=== PATIENT | male | born 1955 | race Caucasian/White ===

== ENCOUNTER 2022-04-25 09:41 | Emergency (ER) | payer OTHER, SELFPAY ==
[2022-04-25] VITALS (7 sets, daily range): BP systolic 103–150; BP diastolic 63–83; PULSE 43–62; RESP 16; TEMP 36.9; O2SAT 100
--- NOTE | ~2022-04-25 | CT_ITS ---
EXAMINATION: CTA brain carotid DATE: 04/25/2022 11:53 INDICATION: Dizziness. Disorientation. TECHNIQUE: Computed tomographic angiography (CTA) of the head was performed without and with 100 mL O mnipaque 300 intravenous contrast. CTA of the neck was performed with intravenous contrast. Automated exposure control and iterative reconstruction technique were employed. The dose-length product was 1 942.59 mGy-cm. Maximum intensity projection and volume rendered 3D-reconstructions were created by nallely urena technologist on a separate workstation. COMPARISON: None. FINDINGS: HEAD CTA: There is no intracranial hemorrhage, acute infarction, or abnormal intracranial mass lesion . There is a 2.7 x 1.5 cm arachnoid cyst lateral to left cerebellar hemisphere. The ventricles are no rmal in size. There is mild mucosal thickening in the paranasal sinuses. The orbits are normal. The m astoid air cells are normal. Right vertebral artery is dominant. There is no significant stenosis of basilar artery or the posterior cerebral arteries. There is no significant stenosis of the intracrani al internal carotid arteries or anterior or middle cerebral arteries. Anterior communicating artery i s normal. There is no aneurysm. NECK CTA: Partially visualized is mild mediastinal lymphadenopathy. There is no significant stenosis of the vertebral arteries. There is plaque in the proximal internal carotid arteries. There is 0% zurdo nosis of the proximal right internal carotid artery relative to normal distal artery lumen diameter ( NASCET criteria). There is 20% stenosis of the proximal left internal carotid artery relative to norm al distal artery lumen diameter. There is severe cervical spondylosis. IMPRESSION: 1. Arachnoid cyst lateral to left cerebral hemisphere, likely not clinically significant. 2. No aneurysm or significant intracranial arterial stenosis. 3. 0% stenosis of the proximal right internal carotid artery relative to normal distal artery lumen d iameter (NASCET criteria). 4. 20% stenosis of the proximal left internal carotid artery relative to normal distal artery lumen d iameter. Reviewed, dictated and finalized at location A. IMPRESSION: 1. Arachnoid cyst lateral to left cerebral hemisphere, likely not clinically si gnificant. 2. No aneurysm or significant intracranial arterial stenosis. 3. 0% stenosis of the proximal right internal carotid artery relative to normal distal artery lumen diameter (NASCET criteria). 4. 20% stenosis of the proximal left internal carotid artery relative to normal distal artery lumen diameter.
--- NOTE | 2022-04-25 10:14 | ECG_ITS ---
Measurements Intervals Cascade Rate: 48 P: 4 AR: 200 QRS: -45 QRSD: 117 T: 0 QT: 387 QTc: 348 Interpretive Statements SINUS BRADYCARDIA LEFT ANTERIOR FASCICULAR BLOCK [QRS AXIS <= -45, QR IN I, RS IN II] ABNORMAL ECG NO PREVIOUS ECG AVAILABLE FOR COMPARISON Electronically Signed On 04-25-2022 16:47:26 CDT by Leander Tello M.D.
--- NOTE | 2022-04-25 10:28 | ED.GENADULT ---
HPI - General Adult General Chief complaint: Dizziness Stated complaint: disorientation that began around 0800 this morning Time Seen by Provider: 04/25/22 09:59 Source: patient Mode of arrival: ambulatory Limitations: no limitations History of Present Illness HPI narrative: Patient is a 66-year-old male who presents to the ED with report of disorientation. Patient reports he was at work this morning and was having difficulty focusing. Around 8 AM this morning, he was walking out to his truck when he suddenly became disoriented. He states he was walking and felt like his eyes were not in sync with his feet. Involving both eyes. He denied any focal weakness, confusion, difficulty walking, vision changes, dysarthria, slurred speech at that time. He does not report feeling dizzy or lightheaded at that time, but states he just felt like his eyes weren't able to focus or match up with what his body was doing. He went and sat in his car and reported the symptoms improved with sitting down. Symptoms worse with walking, turning head. He then drove to the ED. Patient does mention having previous episodes of a sort of dizziness in the last couple weeks, described as though he fell off and his eyes were dancing. Patient states he feels fine currently laying down in the ED bed, but does report lightheadedness with sitting upright. He continues to deny any focal weakness, confusion, dysarthria, dysphagia, headache, vision changes, chest pain, shortness of breath, fever, abdominal pain, nausea, vomiting. Related Data Home Medications Medication Instructions Recorded Confirmed atorvastatin 80 mg tablet 40 mg PO DAILY 04/25/22 04/25/22 etanercept 50 mg/mL (1 mL) 50 mg subcut WEEKLY 04/25/22 04/25/22 subcutaneous pen injector (Enbrel SureClick) folic acid 1 mg tablet 1 mg PO DAILY 04/25/22 04/25/22 meloxicam 7.5 mg tablet 7.5 mg PO DAILY 04/25/22 04/25/22 metformin 750 mg tablet,extended 750 tablet PO BID 04/25/22 04/25/22 release 24 hr methotrexate sodium 2.5 mg tablet 8 mg PO WEEKLY 04/25/22 04/25/22 metoprolol tartrate 25 mg tablet 25 mg PO DAILY 04/25/22 04/25/22 Allergies Allergy/AdvReac Type Severity Reaction Status Date / Time No Known Allergies Allergy Unverified 05/22/19 15:36 Review of Systems Review of Systems: CONSTITUTIONAL: Denies fever, chills, or sweats. EYES: Reports difficulty focusing. Denies visual changes. ENT: Denies rhinorrhea, congestion, sore throat, or otalgia. CARDIOVASCULAR: Denies chest pain. RESPIRATORY: Denies dyspnea. GASTROINTESTINAL: Denies abdominal pain, nausea, vomiting, or diarrhea. MUSCULOSKELETAL: Denies back pain, joint pain, or myalgia. NEUROLOGIC: Reports disorientation, lightheadedness. Denies confusion, difficulty walking, headache, numbness, tingling, dysarthria, dysphagia, confusion, slurred speech, or focal weakness. All systems reviewed & are unremarkable except as noted in HPI and below PMFSH Past Medical History Medical History (Updated 04/25/22 @ 16:34 by Eliza Villatoro PA-C) Diabetes HTN (hypertension) Hypercholesterolemia Psoriatic arthritis Surgical History Surgical History (Updated 04/25/22 @ 10:46 by Eliza Villatoro PA-C) History of fusion of cervical spine Social History Social History (Updated 04/25/22 @ 10:46 by Eliza Villatoro PA-C) Smoking status: Former smoker Exam Narrative: GENERAL: Well appearing, well-nourished, non-toxic, in no acute distress. HEAD: Normocephalic, atraumatic. EYES: PERRL/EOMI, conjunctivae clear bilaterally. Bilateral fatiguable nystagmus, worse when looking to the right. NOSE: Normal, no drainage. EARS: Bilateral cerumen impactions. NECK: Supple. No adenopathy, no masses. RESPIRATORY: Airway patent, respirations nonlabored. Clear to auscultation bilaterally, no rales, rhonchi, wheezing. CARDIOVASCULAR: Regular rate and rhythm without murmurs, rubs, or gallops. Peripheral pulses 2+ and equal bilaterally. ABDOMINAL: Soft,
[2022-04-25] MEDS: MECLIZINE HCL 25 MG TABLET PO (11:03)
[2022-04-25] MEDS: SODIUM CHLORIDE 0.9% IV 1,000 ML 999 ML IV CONT ×2 (11:04→14:42)
[2022-04-25 11:16] LABS: Basophils Percent Auto 0.7 % (0.2-1.2); Eosinophils Absolute Auto 0.1 K/mm3 (0-0.3); Eosinophils Percent Auto 2.4 % (0-4.4); Hematocrit 37.7 % (42.0-52.0); Hemoglobin 12.8 g/dL (14.0-18.0); Immature Granulocyte Absolute 0.01 K/mm3 (0.00-0.031); Immature Granulocyte Percent A 0.2 % (0-0.5); Lymphocytes Absolute Auto 0.85 K/mm3 (0.9-3.2); Lymphocytes Percent Auto 20.4 % (18.3-44.2); Mean Corpuscular Hemoglobin 33.8 pg (26-34); Mean Corpuscular Volume 99.5 fl (80-100); Mean Platelet Volume 10.6 fl (7.4-10.4); Monocytes Absolute Auto 0.5 K/mm3 (0.1-0.6); Monocytes Percent Auto 11.5 % (2.6-8.5); Neutrophils Absolute Auto 2.7 K/mm3 (1.3-6.7); Neutrophils Percent Auto 64.8 % (45.5-73.1); Platelet Count Result 199 k/mm3 (150-375); Red Blood Count 3.79 M/mm3 (4.6-6.20); Red Cell Distribution Width 13.4 % (11.5-14.5); White Blood Count 4.2 K/mm3 (4.5-10.0)
[2022-04-25 11:25] LABS: Alanine Aminotransferase 13 U/L (6-50); Albumin Level 3.6 g/dL (3.5-5.1); Alkaline Phosphatase 57 U/L (38-126); Anion Gap 6 mmol/L (8-16); Aspartate Amino Transferase 18 U/L (17-59); Bilirubin,Total 0.8 mg/dL (0.2-1.3); Blood Urea Nitrogen 22 mg/dL (9-20); Calcium 8.5 mg/dL (8.4-10.2); Carbon Dioxide 24 mmol/L (22-30); Chloride 105 mmol/L (98-107); Estimated CRCL calculation 96 ml/min; Estimated Glomerular Filt Rate > 60; Glucose 196 mg/dL (65-110); Potassium 3.8 mmol/L (3.4-5.0); Sodium 135 mmol/L (137-145)
[2022-04-25 11:30] LABS: INR 1.1; Prothrombin Time 13.6 Seconds (11.1-14.7)
[2022-04-25 11:31] LABS: Partial Thromboplastin Time 29.7 SECONDS (22.3-36.8)
[2022-04-25 11:37] LABS: Troponin I < 0.012 ng/mL (0.000-0.034)
[2022-04-25 12:09] LABS: Appearance Urine Clear (Clear); Bilirubin Urine Negative (Negative); Blood Urine Negative (Negative); Color Urine Yellow (Yellow); Glucose Urine UA Trace mg/dL (Negative); Ketones Urine Negative (Negative); Leukocyte Esterase Ur Negative LEU/UL (Negative); Nitrate Urine Negative (Negative); Protein Urine Negative (Negative); Urobilinogen Urine 0.2 mg/dL (<2.0); pH Urine 5.5 (5.0-9.0)
[2022-04-25 12:18] LABS: Mucus Urine Rare /lpf; RBC Urine 0-2 /hpf (0-2)
[2022-04-25 12:23] LABS: Add Urine Microscopic? YES
--- NOTE | 2022-04-25 14:41 | PC.NURSE ---
Ear irrigated by DENISA Kumar. Two large balls of wax removed from patient's ears.
== END 2022-04-25 17:01 | disposition home or self-care (01) ==
PROVIDERS: Physician Assistant; Emergency Provider Emergency Medicine; PCP Family Medicine
DX: R42 Dizziness and giddiness (principal); H61.23 Impacted cerumen, bilateral; E11.9 Type 2 diabetes mellitus without complications; I10 Essential (primary) hypertension; E78.00 Pure hypercholesterolemia, unspecified; L40.50 Arthropathic psoriasis, unspecified; Z98.1 Arthrodesis status; Z87.891 Personal history of nicotine dependence; Z79.84 Long term (current) use of oral hypoglycemic drugs
CPT/HCPCS: 36415; 69209; 70496; 70498; 80053; 81001; 84484; 85025; 85610; 85730; 93005; 96360; 96361; 99284; A9270; J7030; Q9967

== ENCOUNTER 2023-05-30 09:55 | Outpatient (CLI) | payer OTHER, SELFPAY ==
--- NOTE | ~2023-05-30 | XR_ITS ---
EXAM: XR shoulder RT min 2V DATE: 05/30/2023 10:15 HISTORY: polyarticular psoriatic arthritis, chronic right shoulder pn . COMPARISON: None available. FINDINGS: Normal mineralization. No fracture or dislocation. No lytic or blastic lesion. Severe AC j oint hypertrophy, with inferior osteophytosis. Moderate degenerative change at the glenohumeral joint . No erosion or periosteal change. Soft tissues within normal limits. IMPRESSION: Polyarticular osteoarthritis of the right shoulder. Reviewed, dictated and finalized at location K.
== END 2023-05-30 09:56 ==
PROVIDERS: PCP Family Medicine
DX: M19.011 Primary osteoarthritis, right shoulder (principal); L40.59 Other psoriatic arthropathy
CPT/HCPCS: 73030

== ENCOUNTER 2024-05-23 23:18 | Inpatient (IN) | payer MEDICARE, SELFPAY ==
--- NOTE | ~2024-05-23 | XR_ITS ---
EXAMINATION: XR abdomen gastric tube insert, XR abdomen gastric tube rechec DATE: 05/24/2024 03:56 INDICATION: Nasogastric tube placement and retrograde advancement TECHNIQUE: 1. A supine view of the abdomen and lower chest was obtained for evaluation of feeding tube placement . 2. After advancement of the nasogastric tube a second supine view of the abdomen and lower chest was obtained for evaluation of feeding tube placement. COMPARISON: None. FINDINGS: On the initial image the nasogastric tube tip is in the body the stomach with proximal side-port just above level of the gastroesophageal junction. This is advanced by a few centimeters on the subsequen t image with the distal tip in proximal side port now in the body of the stomach. No dilated loops of gas-filled bowel evident in the visualized abdomen. There are some excreted contrast in the bilatera l renal collecting system from an earlier contrast-enhanced CT . Calcified nodule at the right lower lung zone consistent with old granulomatous disease. Heart size is normal. IMPRESSION: 1. Nasogastric tube expected position with both distal tip and proximal side port in the body of the stomach on the final image. Reviewed, dictated and finalized at location A. IMPRESSION: 1. Nasogastric tube expected position with both distal tip and proximal side po rt in the body of the stomach on the final image.
--- NOTE | ~2024-05-23 | CT_ITS ---
EXAMINATION: CT abdomen pelvis w con DATE: 05/24/2024 01:43 INDICATION: Right lower quadrant abdominal pain. TECHNIQUE: Computed tomography (CT) of the abdomen and pelvis was performed with 100 mL Omnipaque-350 intravenous contrast. Automated exposure control and iterative reconstruction technique were employe d. The dose-length product was 708.76 mGy-cm. COMPARISON: None FINDINGS: Mild dependent atelectasis in bilateral lower lobes. A few calcified nodules in the right lower lobe along with calcified right hilar and mediastinal lymph nodes consistent with old granulomatous diseas e. Heart size is normal. Atherosclerotic coronary artery calcifications. No pericardial or pleural ef fusion. Liver, gallbladder, spleen, pancreas and bilateral adrenal glands are normal. There are bilat eral renal cysts measuring up to 1.6 cm in the right kidney. Bladder is normal. Bilateral small fat-c ontaining inguinal hernias. Colonic diverticulosis with a sigmoid predominance but without adjacent i nflammatory change to suggest diverticulitis. The appendix is not visualized. No pericecal inflammato ry change to suggest acute appendicitis. There are a few mildly dilated loops of fluid-filled small bowel extending from the right abdomen int o the pelvis with transition point just anterior to the left internal iliac artery. Immediately dista l to the obstruction is a saclike collection of multiple loops of fluid-filled but not dilated small bowel in the left pelvis with associated mesenteric edema and with hypoenhancement of the bowel wall. Near the first transition point is a second decompressed transition point to more distal relatively decompressed small bowel but with normal mural enhancement. The transition point while relatively izabella se proximity do not appear to twist around each other to suggest a volvulus would favor an internal h ernia. No pneumatosis, abscess or free intraperitoneal gas. Minimal likely reactive ascites in the No pathologically enlarged abdominal or pelvic lymphadenopathy. Moderate lumbar spondylosis. Mild thora cic spondylosis with bridging osteophytes at multiple levels consistent with diffuse idiopathic skele darby hyperostosis (DISH). IMPRESSION: 1. Early versus partial small bowel obstruction with mesenteric edema and hyperenhancement of a sacli ke collection of small bowel loops distal to the transition point. Would favor an internal hernia ove r closed loop obstruction but nonetheless with concern for ischemia. Reviewed, dictated and finalized at location A. IMPRESSION: 1. Early versus partial small bowel obstruction with mesenteric edema and hyper enhancement of a saclike collection of small bowel loops distal to the transiti on point. Would favor an internal hernia over closed loop obstruction but nonet heless with concern for ischemia.
[2024-05-23 23:24] VITALS: BP 135/64; PULSE 46; RESP 16; TEMP 36.6; O2SAT 100
[2024-05-23 23:42] LABS: Basophils Percent Auto 0.4 % (0.2-1.2); Eosinophils Percent Auto 0.4 % (0-4.4); Hematocrit 42.4 % (42.0-52.0); Hemoglobin 14.3 g/dL (14.0-18.0); Immature Granulocyte Absolute 0.01 K/mm3 (0.00-0.031); Immature Granulocyte Percent A 0.2 % (0-0.5); Lymphocytes Absolute Auto 0.75 K/mm3 (0.9-3.2); Mean Corpuscular HGB Conc 33.7 g/dl (32-36); Mean Corpuscular Hemoglobin 33.5 pg (26-34); Mean Corpuscular Volume 99.3 fl (80-100); Mean Platelet Volume 10.5 fl (7.4-10.4); Monocytes Absolute Auto 0.4 K/mm3 (0.1-0.6); Monocytes Percent Auto 7.8 % (2.6-8.5); Neutrophils Absolute Auto 3.8 K/mm3 (1.3-6.7); Neutrophils Percent Auto 76.2 % (45.5-73.1); Platelet Count Result 232 k/mm3 (150-375); Red Blood Count 4.27 M/mm3 (4.6-6.20); Red Cell Distribution Width 14.2 % (11.5-14.5)
[2024-05-23 23:54] LABS: Alanine Aminotransferase 16 U/L (6-50); Albumin Level 4.1 g/dL (3.5-5.1); Alkaline Phosphatase 69 U/L (38-126); Anion Gap 9 mmol/L (4-12); Aspartate Amino Transferase 22 U/L (17-59); Bilirubin,Total 0.6 mg/dL (0.2-1.3); Blood Urea Nitrogen 23 mg/dL (9-20); Calcium 9.2 mg/dL (8.4-10.2); Carbon Dioxide 28 mmol/L (22-30); Chloride 99 mmol/L (98-107); Estimated CRCL calculation 75 ml/min; Estimated Glomerular Filt Rate > 60; Glucose 192 mg/dL (65-110); Lipase 216 U/L (23-300); Potassium 4.1 mmol/L (3.4-5.0); Sodium 136 mmol/L (137-145)
[2024-05-23 23:56] VITALS: BP 138/55; PULSE 56; RESP 14; O2SAT 99
[2024-05-24] VITALS (21 sets, daily range): BP systolic 133–171; BP diastolic 56–91; PULSE 47–73; RESP 10–20; TEMP 36.3–37.1; O2SAT 94–100
[2024-05-24 00:10] LABS: Appearance Urine Clear (Clear); Bilirubin Urine Negative (Negative); Blood Urine Negative (Negative); Color Urine Yellow (Yellow); Glucose Urine UA 3+ mg/dL (Negative); Ketones Urine 1+ mg/dL (Negative); Leukocyte Esterase Ur Negative LEU/UL (Negative); Nitrate Urine Negative (Negative); Protein Urine Negative (Negative); Specific Grav Ur 1.036 (1.001-1.035)
[2024-05-24 00:14] LABS: Add Urine Microscopic? YES
[2024-05-24] MEDS: ONDANSETRON INJ 4 MG/2 ML VIAL IV PUSH ×4 (01:23→13:00)
[2024-05-24] MEDS: HYDROmorphone HCL INJ (*CRX) 1 MG/ML SYR 0.5 MG IV PUSH ×4 (01:23→18:48)
[2024-05-24] MEDS: SODIUM CHLORIDE 0.9% IV 2,000 ML 999 ML IV CONT (01:24)
[2024-05-24] MEDS: KETOROLAC 15 MG/ML VIAL (*BKC) IV PUSH (01:26)
--- NOTE | 2024-05-24 02:10 | ED.GENADULT ---
HPI - General Adult General Chief complaint: Abdominal Pain Stated complaint: stomach cramps Time Seen by Provider: 05/24/24 01:06 History of Present Illness HPI narrative: This is a 68-year-old male presenting ED with chief complaint of abdominal pain. Pain started 830 while he was watching TV. It is a crampy pain, it is nonradiating, in the middle and left lower quadrant that comes and goes. It is severe in intensity. He has never had pain like this in before. there are no exacerbating alleviating factors. He has nausea but no vomiting. Last bowel movement was earlier today. No history of small-bowel obstruction. No prior abdominal surgerys. No history of diverticulitis. No fevers. Related Data Home Medications Medication Instructions Recorded Confirmed folic acid 1 mg tablet 1 mg PO DAILY 04/25/22 01/07/24 methotrexate sodium 2.5 mg tablet 8 mg PO WEEKLY 04/25/22 01/07/24 metoprolol tartrate 25 mg tablet 25 mg PO DAILY 04/25/22 01/07/24 Allergies Allergy/AdvReac Type Severity Reaction Status Date / Time No Known Allergies Allergy Verified 05/23/24 23:18 [facility] Past Medical History Medical History Diabetes HTN (hypertension) Hypercholesterolemia Male erectile dysfunction, unspecified Other truck terminal manager (current) drug therapy Psoriatic arthritis 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 Mother No problems noted. Social History Social History Smoking status: Former smoker Alcohol intake: never Substance use: never Substance use type: does not use Lack of Transportation: No Lack of Food: Never True Current Housing: I Have Housing Concerned About Future Housing: No Difficulty Paying Gas/Electric Bills: No Difficulty Paying for Meds: No Currently Unemployed: YES Education: High School Diploma/GED Difficulty w/ Childcare or Family Care: No Living arrangements: with family Occupation/Education: occupation Gender identity (if verbalized by the patient): Male Sexual Orientation (if Verbalized by the Patient): Straight or Heterosexual Spiritual care concerns: No Exam Narrative: APPEARANCE: No apparent distress. Head: atraumatic. EYES: EOMI, NOSE: Atraumatic NECK: Trachea midline RESPIRATORY: No increased rate of breathing CARDIOVASCULAR: RRR, ABDOMINAL: Tenderness to palpation in the suprapubic area and left lower quadrant. Voluntary guarding. MUSCULOSKELETAl: No obvious deformities NEURO: Alert. Moving 4/4 extremities SKIN:: Warm, dry. Normal color PSYCHIATRIC: Normal affect Course Vital Signs Vital signs: Vital Signs Temperature 97.8 F 05/23/24 23:24 Pulse Rate 46 L 05/23/24 23:24 Respiratory Rate 16 05/23/24 23:24 Blood Pressure 135/64 05/23/24 23:24 Pulse Oximetry 100 05/23/24 23:24 Oxygen Delivery Room Air 05/23/24 23:24 Temperature 97.8 F 05/23/24 23:24 Pulse Rate 58 L 05/24/24 02:20 Respiratory Rate 14 05/24/24 02:20 Blood Pressure 144/67 H 05/24/24 02:20 Pulse Oximetry 100 05/24/24 02:20 Oxygen Delivery Room Air 05/23/24 23:24 Medical Decision Making MDM Narrative Medical decision making narrative: -Course: 68-year-old male presenting with lower abdominal pain. CT shows small bowel volvulus with small-bowel obstruction. Vital signs stable with no white count or lactic acid elevations. Patient given fluid resuscitation, pain control, antiemetics and antibiotics. Nasal tube inserted and placed to low inte
[2024-05-24 03:02] LABS: Lactic Acid Reflex 1.5 mmol/L (0.7-2.0)
[2024-05-24] MEDS: PIPERACILLN/TAZ 3.375GM/NS50ML 3.375 GM/50 ML BAG IVPB ×4 (03:29→20:12)
--- NOTE | 2024-05-24 05:18 | ADMGEN ---
This patient, Sabino Crockett, was admitted to Medical Room 347-. Patient/family oriented to hospital policies and general routines including ID bracelet, bed and alarms, visiting hours, pain management, procedures, bathroom and other care routines, personal items, smoking policy, room service/diet, and visiting hours. Information on how to activate the Rapid Response Team has been discussed. Patient/Family are encouraged to report perceived risks to care and to ask questions if they do not understand what they are told or what they should do.
--- NOTE | 2024-05-24 08:31 | PM.CNGS ---
Assessment and Plan Assessment and plan (1) Small bowel obstruction: Code(s): K56.609 - Unspecified intestinal obstruction, unspecified as to partial versus complete obstruction Status: Acute Assessment and Plan: CT scan of the abdomen and pelvis reviewed and showing evidence of a small bowel obstruction. He has no history of abdominal surgery. Virtual radiologist suggested possibly related to a small bowel volvulus and our Radiologist suggests more likely an internal hernia versus possible closed loop obstruction. WBC count and lactic acid were normal on admission. This morning, he is not showing any signs of clinical improvement. No signs of bowel function. He also has peritoneal signs on exam. Will continue NG tube decompression, bowel rest, and add IV fluids. Discussed the case with Dr. Day who recommends proceeding urgently with an exploratory laparotomy, possible bowel resection, which would be done under general anesthesia. He was added to the surgery schedule later today. I discussed the procedure, risks, benefits, alternatives, expected outcomes, and expected recovery in detail with the patient and his . Patient agrees to proceed with surgery. (2) Type 2 diabetes mellitus with mild nonproliferative diabetic retinopathy without macular edema, bilateral: Qualifiers: Diabetes mellitus group home insulin use: without group home use Qualified Code(s): E11.3293 - Type 2 diabetes mellitus with mild nonproliferative diabetic retinopathy without macular edema, bilateral Code(s): E11.3293 - Type 2 diabetes mellitus with mild nonproliferative diabetic retinopathy without macular edema, bilateral Status: Acute (3) Psoriatic arthritis: Code(s): L40.50 - Arthropathic psoriasis, unspecified Status: Acute (4) HTN (hypertension): Qualifiers: Hypertension type: primary hypertension Qualified Code(s): I10 - Essential (primary) hypertension Code(s): I10 - Essential (primary) hypertension Status: Acute (5) Hypercholesterolemia: Code(s): E78.00 - Pure hypercholesterolemia, unspecified Status: Acute (6) Other group home (current) drug therapy: Code(s): Z79.899 - Other group home (current) drug therapy Status: Acute Assessment and Plan: Methotrexate for Psoriatic arthritis, which he takes on . Plan I have discussed the patient's case and plan of care with Dr. Day. Thank you for allowing us to see the patient in consultation and we will continue to follow along with you. History of Present Illness Consult details Consult date: 05/24/24 Reason for consult: other (Small-bowel obstruction) Requesting physician: Justo Dockery MD Narrative: This is a 68-year-old man with a history of psoriatic arthritis on methotrexate, type 2 diabetes mellitus, hypertension, and hyperlipidemia, who presented to the ED last night with complaints of lower abdominal pain. He reports having a sudden onset of pain while sitting in his recliner at home that went across his entire lower abdomen. Initially, this was a cramping pain that he thought was related to gas pains. He has been unable to pass any flatus and his abdominal pain continued to get worse. He denies ever having this severity of abdominal pain in the past and was concerned, therefore he presented to the ED for evaluation. He reports associated nausea, but no vomiting. CT scan of the abdomen and pelvis was read by the virtual radiologist initially as a small-bowel obstruction related to a small-bowel volvulus. Labs showed a white blood cell count of 5000 and lactic acid 1.5. Our service was consulted for surgical evaluation and he was admitted to the hospitalist service. NG tube was placed. He is now seen on the medical floor. Our radiologist read his CT scan of the abdomen and pelvis this morning as a small-bowel obstruction related to either an internal hernia or a possible closed loop obstruct
[2024-05-24 08:52] LABS: Basophils Percent Auto 0.3 % (0.2-1.2); Hematocrit 41.3 % (42.0-52.0); Hemoglobin 13.9 g/dL (14.0-18.0); Immature Granulocyte Absolute 0.02 K/mm3 (0.00-0.031); Immature Granulocyte Percent A 0.3 % (0-0.5); Lymphocytes Absolute Auto 0.62 K/mm3 (0.9-3.2); Mean Corpuscular HGB Conc 33.7 g/dl (32-36); Mean Corpuscular Hemoglobin 33.6 pg (26-34); Mean Corpuscular Volume 99.8 fl (80-100); Mean Platelet Volume 10.8 fl (7.4-10.4); Monocytes Absolute Auto 0.4 K/mm3 (0.1-0.6); Monocytes Percent Auto 5.9 % (2.6-8.5); Neutrophils Absolute Auto 5.9 K/mm3 (1.3-6.7); Neutrophils Percent Auto 84.5 % (45.5-73.1); Platelet Count Result 247 k/mm3 (150-375); Red Blood Count 4.14 M/mm3 (4.6-6.20); Red Cell Distribution Width 14.3 % (11.5-14.5); White Blood Count 6.9 K/mm3 (4.5-10.0)
[2024-05-24 08:56] LABS: Anion Gap 10 mmol/L (4-12); Blood Urea Nitrogen 22 mg/dL (9-20); Calcium 8.8 mg/dL (8.4-10.2); Carbon Dioxide 26 mmol/L (22-30); Chloride 100 mmol/L (98-107); Estimated CRCL calculation 82 ml/min; Estimated Glomerular Filt Rate > 60; Glucose 174 mg/dL (65-110); Potassium 4.2 mmol/L (3.4-5.0); Sodium 136 mmol/L (137-145)
[2024-05-24 09:03] LABS: Prothrombin Time 13.6 Seconds (11.1-14.7)
[2024-05-24] MEDS: HYDROmorphone HCL INJ (*CRX) 1 MG/ML SYR IV PUSH ×3 (09:28→20:47)
[2024-05-24] MEDS: PANTOPRAZOLE SODIUM IV 40 MG VIAL IV PUSH (09:29)
[2024-05-24] MEDS: SODIUM CHLORIDE 0.9% IV 1,000 ML 125 ML IV CONT ×2 (09:32→20:13)
--- NOTE | 2024-05-24 10:32 | PM.IMHP ---
H&P: HPI History of Present Illness Date/Time: 05/24/24 10:32 Chief Complaint: abd pain Narrative: 68-year-old male with PMH/of HTN admitted from ED with chief complaint of abdominal pain. Pain started 830 pm while he was watching TV. He described it as crampy pain, nonradiating, in the middle and left lower quadrant that comes and goes. Severe in intensity. He has never had pain like this in before, nothing would help- he tried. He has nausea but no vomiting. Last bowel movement was earlier today. No history of small-bowel obstruction but had abd surgery in the past No history of diverticulitis. No fevers. Review of Systems Constitutional: Constitutional: Reports chills Eyes: Eyes: Denies photophobia Cardiovascular: Cardiovascular: Denies chest pain Respiratory: Respiratory: Denies chest congestion and Denies cough Gastrointestinal: Gastrointestinal: Reports abdominal pain, Reports bloating, Reports nausea and Reports vomiting Genitourinary: Genitourinary: Denies hematuria Musculoskeletal: Musculoskeletal: Reports myalgias Neurologic: Denies confusion Psychiatric: Psychiatric: Denies anxiety [facility] Past Medical History Medical History Diabetes HTN (hypertension) Hypercholesterolemia Male erectile dysfunction, unspecified Other alf (current) drug therapy Psoriatic arthritis 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, bilateral Vitamin D deficiency, unspecified Surgical History Surgical History History of fusion of cervical spine Family History Family History Grandparent Acute myocardial infarction Mother Cerebrovascular accident Chronic obstructive pulmonary disease Hypertension Social History Social History Smoking status: Former smoker Alcohol intake: current Substance use: never Substance use type: does not use Do You Feel Safe in your Home?: Yes Lack of Transportation: No Lack of Food: Never True Current Housing: I Have Housing Concerned About Future Housing: No Difficulty Paying Gas/Electric Bills: No Difficulty Paying for Meds: No Currently Unemployed: No Education: Trade/Vocational Certificate Difficulty w/ Childcare or Family Care: No Living arrangements: with family Occupation/Education: occupation Gender identity (if verbalized by the patient): Male Sexual Orientation (if Verbalized by the Patient): Straight or Heterosexual Spiritual care concerns: No Meds Home Medications and Allergies Home Medications Medication Instructions Recorded Confirmed Type folic acid 1 mg tablet 1 mg PO DAILY 04/25/22 05/24/24 History methotrexate sodium 2.5 mg tablet 8 mg PO WEEKLY 04/25/22 05/24/24 History Farxiga 5 mg tablet (dapagliflozin 5 mg PO DAILY #90 tabs 12/16/23 05/24/24 Rx propanediol) atorvastatin 80 mg tablet 40 mg PO DAILY #45 tabs 03/20/24 05/24/24 Rx FreeStyle Yuly 14 Day Sensor #2 kits 04/28/24 05/24/24 Rx (flash glucose sensor) infliximab-axxq 100 mg intravenous 100 mg IV WEEKLY 05/24/24 05/24/24 History solution (Avsola) lisinopril 10 mg tablet 10 mg PO DAILY 05/24/24 05/24/24 History metformin 750 mg tablet,extended 750 mg PO QPM 05/24/24 05/24/24 History release 24 hr Allergies Allergy/AdvReac Type Severity Reaction Status Date / Time No Known Allergies Allergy Verified 05/23/24 23:18 Vital Signs Vital Signs - 24 hr 05/23/24 23:24 05/23/24 23:56 05/24/24 02:20 Temperature 97.8 F Pulse Rate 46 L 56 L 58 L Respiratory Rate 16 14 14 Blood Pressure 135/64 138/55 L 144/67 H Pulse Oximetry 100 99 100 Oxygen Delivery Room Air 05/24/24 02:00 05/24/24 02:21 05/24
[2024-05-24 12:28] LABS: Glucose Point of Care 147 mg/dl (65-105)
--- NOTE | 2024-05-24 13:30 | PC.NURSE ---
Pt is off the floor for Sx
[2024-05-24] MEDS: LACTATED RINGERS 1,000 ML 30 ML IV CONT ×2 (14:10→16:05)
--- NOTE | 2024-05-24 14:33 | WPDANESEPPF ---
Anes - Initial Pre Proc Eval Procedure: Operation Date: 05/24/24 15:00 Proposed Procedures p Exploratory Laparotomy, Possible Bowel Resection - Nelly Day MD Date/Time: 05/24/24 14:33 Surgeon: Shelly Mcneal DO Pre Op Diagnosis: Volvulus Patient Data Age: 68 Gender: M Height: 2.03 m Weight: 93.18 kg Last Vital Signs Temp 36.3 C L 05/24/24 12:52 Pulse 47 L 05/24/24 08:00 Resp 16 05/24/24 05:55 BP 138/56 L 05/24/24 05:55 Pulse Ox 97 05/24/24 05:55 O2 Del Method Room Air 05/24/24 08:00 Allergies Allergy/AdvReac Type Severity Reaction Status Date / Time No Known Allergies Allergy Verified 05/23/24 23:18 Home Medications Medication Instructions Recorded Confirmed Type folic acid 1 mg tablet 1 mg PO DAILY 04/25/22 05/24/24 History methotrexate sodium 2.5 mg tablet 8 mg PO WEEKLY 04/25/22 05/24/24 History Farxiga 5 mg tablet (dapagliflozin 5 mg PO DAILY #90 tabs 12/16/23 05/24/24 Rx propanediol) atorvastatin 80 mg tablet 40 mg PO DAILY #45 tabs 03/20/24 05/24/24 Rx FreeStyle Yuly 14 Day Sensor #2 kits 04/28/24 05/24/24 Rx (flash glucose sensor) infliximab-axxq 100 mg intravenous 100 mg IV WEEKLY 05/24/24 05/24/24 History solution ([place]) lisinopril 10 mg tablet 10 mg PO DAILY 05/24/24 05/24/24 History metformin 750 mg tablet,extended 750 mg PO QPM 05/24/24 05/24/24 History release 24 hr Laboratory Tests 05/23/24 05/24/24 05/24/24 23:33 00:02 02:49 WBC 5.0 K/mm3 (4.5-10.0) RBC 4.27 L M/mm3 (4.6-6.20) Hgb 14.3 g/dL (14.0-18.0) Hct 42.4 % (42.0-52.0) MCV 99.3 fl (80-100) MCH 33.5 pg (26-34) MCHC 33.7 g/dl (32-36) RDW 14.2 % (11.5-14.5) Plt Count 232 k/mm3 (150-375) MPV 10.5 H fl (7.4-10.4) Immature Gran % (Auto) 0.2 % (0-0.5) Neut % (Auto) 76.2 H % (45.5-73.1) Lymph % (Auto) 15.0 L % (18.3-44.2) [place] % (Auto) 7.8 % (2.6-8.5) Eos % (Auto) 0.4 % (0-4.4) Baso % (Auto) 0.4 % (0.2-1.2) Lymph # (Auto) 0.75 L K/mm3 (0.9-3.2) [place] # (Auto) 0.4 K/mm3 (0.1-0.6) Eos # (Auto) 0.0 K/mm3 (0-0.3) Baso # (Auto) 0.0 K/mm3 (0.0-0.1) Abs Immat Gran (auto) 0.01 K/mm3 (0.00-0.031) Absolute Neuts (auto) 3.8 K/mm3 (1.3-6.7) Absolute Nucleated RBC 0.000 K/mm3 (0.0-0.012) Nucleated RBC % 0.0 % (0.0-0.2) PT INR Sodium 136 L mmol/L (137-145) Potassium 4.1 mmol/L (3.4-5.0) Chloride 99 mmol/L (98-107) Carbon Dioxide 28 mmol/L (22-30) Anion Gap 9 mmol/L (4-12) BUN 23 H mg/dL (9-20) Creatinine 1.10 mg/dL (0.7-1.3) Estim Creat Clear Calc 75 ml/min Estimated GFR > 60 (59 - ) Glucose 192 H mg/dL (65-110) POC Capillary Glucose Lactic Acid 1.5 mmol/L (0.7-2.0) Calcium 9.2 mg/dL (8.4-10.2) Total Bilirubin 0.6 mg/dL (0.2-1.3) AST 22 U/L (17-59) ALT 16 U/L (6-50) Alkaline Phosphatase 69 U/L (38-126) Total Protein 7.0 g/dL (6.3-8.2) Albumin 4.1 g/dL (3.5-5.1) Lipase 216 U/L (23-300) Urine Color Yellow (Yellow) Urine Appearance Clear (Clear) Urine pH 5.0 (5.0-9.0) Ur Specific [place] 1.036 H (1.001-1.035) Urine Protein Negative mg/dL (Negative) Urine Glucose (UA) 3+ H mg/dL (Negative) Urine Ketones 1+ H mg/dL (Negative) Ur Blood (Man) Negative (Negative) Urine Nitrate Negative (Negative) Urine Bilirubin Negative (Negative) Urine Urobilinogen 1.0 mg/dL (<2.0) Leukocyte Esterase Rfl Negative CHARLES/UL (Negati
--- NOTE | 2024-05-24 14:56 | WPDHPUPDATE1 ---
History and Physical Update Update Date/Time: 05/24/24 14:56 History and Physical has been reviewed, including an updated exam of the patient. There are NO changes in the patient's condition. Risks, benefits, and alternatives have been discussed and questions answered. Patient agrees to proceed with procedure.
[2024-05-24 16:12] LABS: Glucose Point of Care 147 mg/dl (65-105)
--- NOTE | 2024-05-24 16:25 | W.PM.PROC2 ---
Procedure Note - Detailed Date of Procedure 05/24/24 Pre-op Diagnosis Small-bowel obstruction, internal hernia Post-op Diagnosis Same Procedure Performed exploratory laparotomy, lysis of adhesion, detorsion of internal hernia Surgeon Nelly Day MD [employer] Senior Associate MD [facility] General Indications 68-year-old male presenting to the emergency department complaining of severe abdominal pain, nausea, vomiting. Workup, including imaging, suggestive of small-bowel obstruction secondary to internal hernia. Findings adhesive band in the pelvis causing internal hernia Description of Procedure The patient was taken to the operating room and placed in the supine position. After adequate induction of general anesthesia, the patient was prepped and draped in the normal sterile fashion. A time-out was then done verify the patient's identity as well as the procedure being performed. Please note that Dr. Sabino Foster was present for the entirety of the case and assisted from open to close. His presence was requested because of the complicated findings of internal hernia on CT scan. We began by making a lower midline incision to gain access into the peritoneal cavity. Once access was gained into the peritoneal cavity, a moderate amount of free ascitic fluid was noted. This was suctioned away. At this point there were multiple dilated loops of small intestine. A Jabier wound protector was placed through the lower midline incision. We began by running the small intestine proximally. There was noted to be a area of mid to proximal jejunum that was stuck down to the pelvis. Proximal to this area the proximal jejunum was noted to be decompressed and unremarkable. This was noted to the ligament of Treitz. Distally, we ran the small intestine and there was a area adhesed to the pelvis in the distal jejunum. This adhesion was taken down and freed up. The distal small bowel was completely decompressed all the way to the ileocecal junction, ligament of Treves. Upon examining the intestine after the band had been lysed it looked as if the band had caused an internal hernia. We were able to un torsed the intestine at this point. We were able to run the entirety of the small intestine at this time and no other pathology was noted. The small intestine was noted to be viable and healthy appearing. At this point the small intestine was replaced into the abdominal cavity. The fascia of the lower midline incision was closed with a looped PDS. The subcutaneous tissue was closed with 3-0 Vicryl suture. The skin was closed with 4-0 Monocryl subcuticular suture. Dermabond was then placed on the. The patient tolerated the procedure well and was extubated postoperatively. He will be transferred to the recovery room in stable condition. Estimated Blood Loss 5 Drains No Packing No Pathology None sent Complications No immediate complications Condition Stable Disposition PACU [facility] Billing Surgery - Charge Forward: Surgery Billing
[2024-05-24] MEDS: fentaNYL CITRATE INJ (*CRX) 100 MCG/2 ML VIAL 25 MCG IV PUSH ×2 (16:49→16:51)
[2024-05-24] MEDS: METOCLOPRAMIDE HCL INJ 10 MG/2 ML VIAL 5 MG IV PUSH (20:13)
[2024-05-25] VITALS (12 sets, daily range): BP systolic 143–164; BP diastolic 64–78; PULSE 55–76; RESP 16–18; TEMP 36.3–37; O2SAT 95–100
[2024-05-25] MEDS: METOCLOPRAMIDE HCL INJ 10 MG/2 ML VIAL 5 MG IV PUSH ×5 (00:20→23:09)
[2024-05-25] MEDS: HYDROmorphone HCL INJ (*CRX) 1 MG/ML SYR IV PUSH ×4 (00:20→08:53)
[2024-05-25 00:24] LABS: Glucose Point of Care 155 mg/dl (65-105)
[2024-05-25] MEDS: PIPERACILLN/TAZ 3.375GM/NS50ML 3.375 GM/50 ML BAG IVPB ×2 (03:04→08:46)
[2024-05-25 05:32] LABS: Glucose Point of Care 147 mg/dl (65-105)
[2024-05-25 07:10] LABS: Hematocrit 42.8 % (42.0-52.0); Hemoglobin 14.2 g/dL (14.0-18.0); Mean Corpuscular HGB Conc 33.2 g/dl (32-36); Mean Corpuscular Hemoglobin 33.4 pg (26-34); Mean Corpuscular Volume 100.7 fl (80-100); Mean Platelet Volume 10.7 fl (7.4-10.4); Platelet Count Result 236 k/mm3 (150-375); Red Blood Count 4.25 M/mm3 (4.6-6.20); Red Cell Distribution Width 14.2 % (11.5-14.5); White Blood Count 9.4 K/mm3 (4.5-10.0)
[2024-05-25 07:43] LABS: Anion Gap 5 mmol/L (4-12); Blood Urea Nitrogen 18 mg/dL (9-20); Calcium 8.3 mg/dL (8.4-10.2); Carbon Dioxide 29 mmol/L (22-30); Chloride 102 mmol/L (98-107); Estimated CRCL calculation 75 ml/min; Estimated Glomerular Filt Rate > 60; Glucose 135 mg/dL (65-110); Potassium 4.1 mmol/L (3.4-5.0); Sodium 136 mmol/L (137-145)
[2024-05-25] MEDS: PANTOPRAZOLE SODIUM IV 40 MG VIAL IV PUSH (08:47)
--- NOTE | 2024-05-25 08:49 | PM.IMPN ---
Progress Note: A&P Assessment and Plan (1) Small bowel obstruction: Code(s): K56.609 - Unspecified intestinal obstruction, unspecified as to partial versus complete obstruction Status: Acute Assessment and Plan: - Abd/pelvis CT: Early versus partial small bowel obstruction with mesenteric edema and hyperenhancement of a saclike collection of small bowel loops distal to the transition point. Would favor an internal hernia over closed loop obstruction but nonetheless with concern for ischemia. - No history of abdominal surgery - Gentle IV fluid resuscitation given the patient's NPO status - P.r.n. Anti emetics, avoid reglan - IV antibiotics discontinued by surgery as there was no ischemia during surgery - Diet: NPO - NG decompression - Surgery consulted s/p exploratory laparotomy, lysis of adhesion, detorsion of internal hernia on 05/[address] Day - Monitor vital signs, I&Os, track stool output, watch for bloody stools, neuro status and patient is a fall risk - Monitor serum electrolytes and CBC (2) Type 2 diabetes mellitus with mild nonproliferative diabetic retinopathy without macular edema, bilateral: Qualifiers: Diabetes mellitus alf insulin use: without manager gaming use Qualified Code(s): E11.3293 - Type 2 diabetes mellitus with mild nonproliferative diabetic retinopathy without macular edema, bilateral Code(s): E11.3293 - Type 2 diabetes mellitus with mild nonproliferative diabetic retinopathy without macular edema, bilateral Status: Acute Assessment and Plan: - hypoglycemia protocol - POC blood glucose ACHS - home medication - metformin - A1C 8.1 on 12/15/23 (3) HTN (hypertension): Qualifiers: Hypertension type: primary hypertension Qualified Code(s): I10 - Essential (primary) hypertension Code(s): I10 - Essential (primary) hypertension Status: Acute Assessment and Plan: Chronic, continue to hold lisinopril due to NG tube placement. - Monitor Time Spent With Patient Time with patient: 25 - 35 minutes Subjective Date/time seen: 05/25/24 08:49 Interval history: Patient is pleasant lying comfortably in bed with at bedside. He continues to require NG tube placement at this time as he has hypoactive bowel sounds on exam. patient notes that he was able to ambulate throughout halls with mild increased pain. Continue to encourage him to get out of bed. Patient continues to endorse mild abdominal pain but notes that this is well controlled on current pain regimen. He denies chest pain, shortness of breath, palpitations, nausea and changes in bladder. Review of Systems Review of Systems: All systems reviewed & are unremarkable except as noted in HPI and below Exam Narrative: AF HR 62 RR 16 SpO2 97 BP 143/69 General: male in no acute respiratory distress who is nontoxic appearing, lying semi recumbent in bed. HEENT: Normocephalic. Atraumatic. Pupils equal round reactive to light. Extraocular movement intact. Sclera clear and anicteric. No facial asymmetry. Chest: Lungs are clear to auscultation bilaterally. No wheezes or crackles. CV: Heart was regular rate and rhythm. S1/S2. No murmurs, gallops, or rubs. Abd: Abdomen was soft. Tender to palpation. Nondistended. Hypoactive bowel sounds. No organomegaly or masses. Clean dry and intact incision in the hypogastric region. Ext: No clubbing, cyanosis, or edema. 2+ DP pulses bilaterally. Neuro: Patient is alert and oriented x4. Cranial nerves 2-12 are intact. Speech is clear. Psych: Normal mood and affect. Patient is pleasant and cooperative. Skin: Warm and dry. No rashes noted. Objective Data Vital Signs Vital Signs: Vital Signs - 24 hr 05/24/24 12:52 05/24/24 14:06 05/24/24 12:00 Temperature 97.3 F L 98.4 F Pulse Rate 48 L 50 L Respiratory Rate 20 Blood Pressure 148/57 H Pulse Oximetry 96 Oxygen Delivery Room Air Oxygen Flow Rate 05/24/24 16:05
[2024-05-25] MEDS: SODIUM CHLORIDE 0.9% IV 1,000 ML 125 ML IV CONT ×2 (08:57→17:51)
--- NOTE | 2024-05-25 11:23 | PM.PNGS ---
Progress Note: A&P Assessment and Plan (1) Small bowel obstruction: Code(s): K56.609 - Unspecified intestinal obstruction, unspecified as to partial versus complete obstruction Status: Acute Assessment and Plan: Await return of bowel function Continue NG decompression, IV fluids, and bowel rest Increase activity, up to chair, ambulating Will stop IV antibiotics. No bowel ischemia during surgery. Plan I have discussed the patient's case and plan of care with Dr. Day. Subjective Subjective Date/Time Seen: 05/25/24 11:23 Patient reports: feels better, pain is less, no flatus, no bowel movement and afebrile Interval history: Patient is sitting in the chair. She reports incisional soreness, but no abdominal pain like he was feeling prior to surgery. He is tolerating activity. No flatus or BM. Reports some nausea this morning. Also reports some urinary hesitancy and unsure if he is completely emptying his bladder. Exam Const: General: comfortable and no acute distress GI: Inspection: non-distended and incision (incision dry and intact) GI Palp: Yes Soft to palpation, Yes Tenderness to palpation present (GI) (diffusely) and No Guarding due to palpation present (GI) Auscultation: absent bowel sounds Neuro: General: moves all extremities and no focal motor deficits Extrem: General: no calf tenderness and no edema Psych: Mental Status: mental status grossly normal Insight: Good insight present (Psych) Objective Data Vital Signs Vital Signs: Vital Signs - 24 hr 05/24/24 12:52 05/24/24 14:06 05/24/24 12:00 Temperature 97.3 F L 98.4 F Pulse Rate 48 L 50 L Respiratory Rate 20 Blood Pressure 148/57 H Pulse Oximetry 96 Oxygen Delivery Room Air Oxygen Flow Rate 05/24/24 16:05 05/24/24 16:20 05/24/24 16:30 Temperature 98.7 F Pulse Rate 51 L 54 L 56 L Respiratory Rate 10 L 11 L 11 L Blood Pressure 141/87 H 144/86 H 151/81 H Pulse Oximetry 100 100 100 Oxygen Delivery Simple Face Mask Simple Face Mask Simple Face Mask Oxygen Flow Rate 8 8 8 05/24/24 16:45 05/24/24 17:00 05/24/24 17:15 Temperature Pulse Rate 63 68 63 Respiratory Rate 13 13 11 L Blood Pressure 171/86 H 154/84 H 162/84 H Pulse Oximetry 94 94 94 Oxygen Delivery Room Air Room Air Oxygen Flow Rate 05/24/24 17:31 05/24/24 17:55 05/24/24 19:40 Temperature 98.4 F 98.1 F Pulse Rate 61 54 L 67 Respiratory Rate 20 12 18 Blood Pressure 165/91 H 143/68 H 150/70 H Pulse Oximetry 95 97 97 Oxygen Delivery Room Air Oxygen Flow Rate 05/24/24 20:00 05/25/24 00:00 05/25/24 00:00 Temperature 98.6 F Pulse Rate 73 60 74 Respiratory Rate 16 Blood Pressure 152/69 H Pulse Oximetry 96 Oxygen Delivery Oxygen Flow Rate 05/25/24 04:00 05/25/24 05:20 05/25/24 08:00 Temperature 97.7 F 97.4 F L Pulse Rate 64 58 L 62 Respiratory Rate 18 16 Blood Pressure 154/64 H 143/69 H Pulse Oximetry 96 97 Oxygen Delivery Oxygen Flow Rate 05/25/24 09:21 05/25/24 09:10 Temperature Pulse Rate Respiratory Rate Blood Pressure Pulse Oximetry 95 Oxygen Delivery Room Air Room Air Oxygen Flow Rate Intake/Output Intake/Output: Intake & Output 05/22/24 05/23/24 05/24/24 05/25/24 23:59 23:59 23:59 23:59 Intake Total 3700 1160 Output Total 500 Balance 3700 660 Meds/Results Medications: Active Medications Generic Name Dose Route Start Last Admin Trade Name Freq PRN Reason Stop Dose Admin Hydralazine HCl 10 mg 05/24/24 14:05 Hydralazine Hcl 20 Mg/Ml Vial IV PUSH Q8H PRN Blood Pressure - High Hydromorphone HCl 1 mg 05/24/24 08:31 05/25/24 08:53 Hydromorphone Hcl Inj (*Crx) 1 Mg/Ml Syr IV PUSH 1 mg Q2H PRN Administration Pain Rated 7-10 Hydromorphone HCl 0.5 mg 05/24/24 08:31 05/24/24 18:48 Hydromorphone Hcl Inj (*Crx) 1 Mg/Ml Syr IV PUSH 0.5 mg Q2H PRN Administration Pain Rated 4-6 Sodium Chlori
--- NOTE | 2024-05-25 11:35 | PM.PNGS ---
Progress Note: A&P Assessment and Plan (1) Internal hernia: Code(s): K45.8 - Other specified abdominal hernia without obstruction or gangrene Status: Acute Assessment and Plan: doing well, cont routine postop care, await bowel fxn, cont NG and bowel rest for now, encourage OOB/IS Subjective Subjective Date/Time Seen: 05/25/24 11:35 Interval history: feels better, some incisional soreness Review of Systems Review of Systems: All systems reviewed & are unremarkable except as noted in HPI and below Exam Const: General: cooperative, comfortable and no acute distress Resp: Auscultation: clear to auscultation bilaterally Cardio: Rate: regular rate Rhythm: regular rhythm GI: Inspection: normal to inspection, distended and incision GI Palp: Yes abdominal tenderness, Yes Soft to palpation and Yes Tenderness to palpation present (GI) Objective Data Vital Signs Vital Signs: Vital Signs - 24 hr 05/24/24 12:52 05/24/24 14:06 05/24/24 12:00 Temperature 36.3 C L 36.9 C Pulse Rate 48 L 50 L Respiratory Rate 20 Blood Pressure 148/57 H Pulse Oximetry 96 Oxygen Delivery Room Air Oxygen Flow Rate 05/24/24 16:05 05/24/24 16:20 05/24/24 16:30 Temperature 37.1 C Pulse Rate 51 L 54 L 56 L Respiratory Rate 10 L 11 L 11 L Blood Pressure 141/87 H 144/86 H 151/81 H Pulse Oximetry 100 100 100 Oxygen Delivery Simple Face Mask Simple Face Mask Simple Face Mask Oxygen Flow Rate 8 8 8 05/24/24 16:45 05/24/24 17:00 05/24/24 17:15 Temperature Pulse Rate 63 68 63 Respiratory Rate 13 13 11 L Blood Pressure 171/86 H 154/84 H 162/84 H Pulse Oximetry 94 94 94 Oxygen Delivery Room Air Room Air Oxygen Flow Rate 05/24/24 17:31 05/24/24 17:55 05/24/24 19:40 Temperature 36.9 C 36.7 C Pulse Rate 61 54 L 67 Respiratory Rate 20 12 18 Blood Pressure 165/91 H 143/68 H 150/70 H Pulse Oximetry 95 97 97 Oxygen Delivery Room Air Oxygen Flow Rate 05/24/24 20:00 05/25/24 00:00 05/25/24 00:00 Temperature 37.0 C Pulse Rate 73 60 74 Respiratory Rate 16 Blood Pressure 152/69 H Pulse Oximetry 96 Oxygen Delivery Oxygen Flow Rate 05/25/24 04:00 05/25/24 05:20 05/25/24 08:00 Temperature 36.5 C 36.3 C L Pulse Rate 64 58 L 62 Respiratory Rate 18 16 Blood Pressure 154/64 H 143/69 H Pulse Oximetry 96 97 Oxygen Delivery Oxygen Flow Rate 05/25/24 09:21 05/25/24 09:10 Temperature Pulse Rate Respiratory Rate Blood Pressure Pulse Oximetry 95 Oxygen Delivery Room Air Room Air Oxygen Flow Rate Intake/Output Intake/Output: Intake & Output 05/22/24 05/23/24 05/24/24 05/25/24 23:59 23:59 23:59 23:59 Intake Total 3700 1160 Output Total 500 Balance 3700 660 Meds/Results Medications: Active Medications Generic Name Dose Route Start Last Admin Trade Name Freq PRN Reason Stop Dose Admin Hydralazine HCl 10 mg 05/24/24 14:05 Hydralazine Hcl 20 Mg/Ml Vial IV PUSH Q8H PRN Blood Pressure - High Hydromorphone HCl 1 mg 05/24/24 08:31 05/25/24 08:53 Hydromorphone Hcl Inj (*Crx) 1 Mg/Ml Syr IV PUSH 1 mg Q2H PRN Administration Pain Rated 7-10 Hydromorphone HCl 0.5 mg 05/24/24 08:31 05/24/24 18:48 Hydromorphone Hcl Inj (*Crx) 1 Mg/Ml Syr IV PUSH 0.5 mg Q2H PRN Administration Pain Rated 4-6 Sodium Chloride 1,000 mls @ 125 mls/hr 05/24/24 08:35 05/25/24 08:57 Normal Saline Iv IV CONT 125 mls/hr .Q8H LORRIE Administration Metoclopramide HCl 5 mg 05/24/24 18:00 05/25/24 05:17 Metoclopramide Hcl Inj 10 Mg/2 Ml Vial IV PUSH 5 mg Q6HR LORRIE Administration Ondansetron HCl 4 mg 05/24/24 04:15 05/24/24 13:00 Ondansetron Inj 4 Mg/2 Ml Vial IV PUSH 4 mg Q4H PRN Administration Nausea Pantoprazole Sodium 40 mg 05/24/24 09:00 05/25/24 08:47 Pantoprazole Sodium Iv 40 Mg Vial IV PUSH 40 mg QAM LORRIE Administration Radiology Results: ITS Impressi
[2024-05-25] MEDS: HYDROmorphone HCL INJ (*CRX) 1 MG/ML SYR 0.5 MG IV PUSH ×3 (11:56→23:30)
[2024-05-25 12:14] LABS: Glucose Point of Care 143 mg/dl (65-105)
--- NOTE | 2024-05-25 13:59 | WPDANESPN ---
Anes - Prog Note Post-Op Date/Time: 05/25/24 13:59 Cardiovascular status: normal Respiratory status: normal Airway patency: baseline Mental status: baseline Post-Op hydration status: normal Vital Signs: Last Vital Signs Temp 36.3 C L 05/25/24 08:00 Pulse 60 05/25/24 12:04 Resp 16 05/25/24 08:00 BP 143/69 H 05/25/24 08:00 Pulse Ox 95 05/25/24 09:21 O2 Del Method Room Air 05/25/24 09:21 O2 Flow Rate 8 05/24/24 16:30 Pain Score (VAS): 0 I/O: Intake & Output 05/24/24 05/25/24 05/25/24 23:59 07:59 15:59 Intake Total 1550 50 1110 Output Total 500 Balance 1550 -450 1110 Laboratory Tests 05/25/24 06:58 05/25/24 06:58 05/24/24 05/25/24 05/25/24 16:10 00:18 05:26 WBC RBC Hgb Hct MCV MCH MCHC RDW Plt Count MPV Sodium Potassium Chloride Carbon Dioxide Anion Gap BUN Creatinine Estim Creat Clear Calc Estimated GFR Glucose POC Capillary Glucose 147 H 155 H 147 H Calcium 05/25/24 05/25/24 06:58 12:12 WBC 9.4 RBC 4.25 L Hgb 14.2 Hct 42.8 MCV 100.7 H MCH 33.4 MCHC 33.2 RDW 14.2 Plt Count 236 MPV 10.7 H Sodium 136 L Potassium 4.1 Chloride 102 Carbon Dioxide 29 Anion Gap 5 BUN 18 Creatinine 1.10 Estim Creat Clear Calc 75 Estimated GFR > 60 Glucose 135 H POC Capillary Glucose 143 H Calcium 8.3 L Post-procedural complaints: none Patient Feedback: Patient satisfied with anesthetic care.
[2024-05-25 23:39] LABS: Glucose Point of Care 127 mg/dl (65-105)
[2024-05-26] VITALS (9 sets, daily range): BP systolic 142–155; BP diastolic 79–86; PULSE 60–85; RESP 16–18; TEMP 36.3–36.8; O2SAT 95–96
[2024-05-26] MEDS: SODIUM CHLORIDE 0.9% IV 1,000 ML 125 ML IV CONT ×3 (01:18→21:01)
[2024-05-26] MEDS: METOCLOPRAMIDE HCL INJ 10 MG/2 ML VIAL 5 MG IV PUSH ×4 (05:01→23:01)
[2024-05-26] MEDS: HYDROmorphone HCL INJ (*CRX) 1 MG/ML SYR IV PUSH ×3 (05:02→21:01)
[2024-05-26 05:38] LABS: Glucose Point of Care 118 mg/dl (65-105)
[2024-05-26 07:16] LABS: Basophils Percent Auto 0.7 % (0.2-1.2); Eosinophils Percent Auto 0.5 % (0-4.4); Hematocrit 42.2 % (42.0-52.0); Hemoglobin 14.2 g/dL (14.0-18.0); Immature Granulocyte Absolute 0.02 K/mm3 (0.00-0.031); Immature Granulocyte Percent A 0.3 % (0-0.5); Lymphocytes Absolute Auto 0.89 K/mm3 (0.9-3.2); Mean Corpuscular HGB Conc 33.6 g/dl (32-36); Mean Corpuscular Hemoglobin 33.6 pg (26-34); Mean Platelet Volume 10.4 fl (7.4-10.4); Monocytes Absolute Auto 0.6 K/mm3 (0.1-0.6); Monocytes Percent Auto 9.6 % (2.6-8.5); Neutrophils Absolute Auto 4.4 K/mm3 (1.3-6.7); Neutrophils Percent Auto 73.9 % (45.5-73.1); Platelet Count Result 210 k/mm3 (150-375); Red Blood Count 4.22 M/mm3 (4.6-6.20); Red Cell Distribution Width 14.1 % (11.5-14.5)
--- NOTE | 2024-05-26 07:21 | PM.IMPN ---
Progress Note: A&P Assessment and Plan (1) Small bowel obstruction: Code(s): K56.609 - Unspecified intestinal obstruction, unspecified as to partial versus complete obstruction Status: Acute Assessment and Plan: - Abd/pelvis CT: Early versus partial small bowel obstruction with mesenteric edema and hyperenhancement of a saclike collection of small bowel loops distal to the transition point. Would favor an internal hernia over closed loop obstruction but nonetheless with concern for ischemia. - No history of abdominal surgery - Gentle IV fluid resuscitation given the patient's NPO status - P.r.n. Anti emetics, avoid reglan - IV antibiotics discontinued by surgery as there was no ischemia during surgery - Diet: NPO - NG tube currently clamped. If successful clamp trial then will remove NG and advance diet as tolerated. - Surgery consulted s/p exploratory laparotomy, lysis of adhesion, detorsion of internal hernia on 05/[address] Day - Monitor vital signs, I&Os, track stool output, watch for bloody stools, neuro status and patient is a fall risk - Monitor serum electrolytes and CBC (2) Type 2 diabetes mellitus with mild nonproliferative diabetic retinopathy without macular edema, bilateral: Qualifiers: Diabetes mellitus halfway insulin use: without halfway use Qualified Code(s): E11.3293 - Type 2 diabetes mellitus with mild nonproliferative diabetic retinopathy without macular edema, bilateral Code(s): E11.3293 - Type 2 diabetes mellitus with mild nonproliferative diabetic retinopathy without macular edema, bilateral Status: Acute Assessment and Plan: - hypoglycemia protocol - POC blood glucose ACHS - home medication - metformin - A1C 8.1 on 12/15/23 (3) HTN (hypertension): Qualifiers: Hypertension type: primary hypertension Qualified Code(s): I10 - Essential (primary) hypertension Code(s): I10 - Essential (primary) hypertension Status: Acute Assessment and Plan: Chronic, continue to hold lisinopril due to NG tube placement. - Monitor Time Spent With Patient Time with patient: 25 - 35 minutes Subjective Date/time seen: 05/26/24 07:21 Interval history: 68 year old male with past medical history of hypertension and diabetes presented to the hospital for abdominal pain. Patient is pleasant lying comfortably in bed with at bedside. He states he is feeling much better today. He continues to endorse mild abdominal pain more so related to his incision. He is undergoing a clamp trial today of his NG tube. He still has no return of bowel function at this time. He denies chest pain, shortness of breath, nausea/vomiting, and changes in bladder. Review of Systems Review of Systems: All systems reviewed & are unremarkable except as noted in HPI and below Exam Narrative: AF HR 70 RR 16 SpO2 95 BP 155/79 General: male in no acute respiratory distress who is nontoxic appearing, lying semi recumbent in bed. HEENT: Normocephalic. Atraumatic. Extraocular movement intact. Sclera clear and anicteric. No facial asymmetry. NG tube placed, currently clamped. Chest: Lungs are clear to auscultation bilaterally. No wheezes or crackles. CV: Heart was regular rate and rhythm. S1/S2. No murmurs, gallops, or rubs. Abd: Abdomen was soft. Tender to palpation. Nondistended. Hypoactive bowel sounds. No organomegaly or masses. Clean dry and intact incision in the hypogastric region. Objective Data Vital Signs Vital Signs: Vital Signs - 24 hr 05/25/24 08:00 05/25/24 09:21 05/25/24 09:10 Temperature 97.4 F L Pulse Rate 62 Respiratory Rate 16 Blood Pressure 143/69 H Pulse Oximetry 97 95 Oxygen Delivery Room Air Room Air 05/25/24 08:03 05/25/24 12:04 05/25/24 12:00 Temperature 97.4 F L Pulse Rate 67 60 55 L Respiratory Rate 16 Blood Pressure 143/69 H Pulse Oximetry 96 Oxygen Delivery 05/25/24 16:03 05/25/24 16:00 05/25
[2024-05-26 07:27] LABS: Alanine Aminotransferase 11 U/L (6-50); Albumin Level 3.4 g/dL (3.5-5.1); Alkaline Phosphatase 54 U/L (38-126); Anion Gap 9 mmol/L (4-12); Aspartate Amino Transferase 16 U/L (17-59); Bilirubin,Total 0.9 mg/dL (0.2-1.3); Blood Urea Nitrogen 16 mg/dL (9-20); Calcium 8.5 mg/dL (8.4-10.2); Carbon Dioxide 26 mmol/L (22-30); Chloride 101 mmol/L (98-107); Estimated CRCL calculation 91 ml/min; Estimated Glomerular Filt Rate > 60; Glucose 106 mg/dL (65-110); Potassium 3.6 mmol/L (3.4-5.0); Sodium 136 mmol/L (137-145)
[2024-05-26] MEDS: PANTOPRAZOLE SODIUM IV 40 MG VIAL IV PUSH (08:24)
[2024-05-26] MEDS: HYDROmorphone HCL INJ (*CRX) 1 MG/ML SYR 0.5 MG IV PUSH ×2 (08:32→14:09)
--- NOTE | 2024-05-26 09:33 | PM.PNGS ---
Progress Note: A&P Assessment and Plan (1) Small bowel obstruction: Code(s): K56.609 - Unspecified intestinal obstruction, unspecified as to partial versus complete obstruction Status: Acute Assessment and Plan: improved, will try to clamp NG today, cont to encourage OOB/IS Subjective Subjective Date/Time Seen: 05/26/24 09:33 Interval history: feels better, pain much improved, still no bowel fxn but quite hungry Review of Systems Review of Systems: All systems reviewed & are unremarkable except as noted in HPI and below Exam Const: General: cooperative, comfortable and no acute distress Resp: Auscultation: clear to auscultation bilaterally Cardio: Rate: regular rate Rhythm: regular rhythm GI: Inspection: normal to inspection, distended and incision GI Palp: Yes abdominal tenderness and Yes Soft to palpation Objective Data Vital Signs Vital Signs: Vital Signs - 24 hr 05/25/24 12:04 05/25/24 12:00 05/25/24 16:03 Temperature 36.3 C L Pulse Rate 60 55 L 65 Respiratory Rate 16 Blood Pressure 143/69 H Pulse Oximetry 96 Oxygen Delivery 05/25/24 16:00 05/25/24 20:00 05/25/24 20:00 Temperature 36.7 C 36.8 C Pulse Rate 55 L 70 Respiratory Rate 18 16 Blood Pressure 152/77 H 151/72 H Pulse Oximetry 100 96 Oxygen Delivery Room Air 05/25/24 20:00 05/25/24 23:20 05/26/24 00:00 Temperature 36.9 C Pulse Rate 76 60 78 Respiratory Rate 16 Blood Pressure 164/78 H Pulse Oximetry 97 Oxygen Delivery 05/26/24 04:00 05/26/24 05:16 Temperature 36.8 C Pulse Rate 68 70 Respiratory Rate 16 Blood Pressure 155/79 H Pulse Oximetry 95 Oxygen Delivery Intake/Output Intake/Output: Intake & Output 05/23/24 05/24/24 05/25/24 05/26/24 23:59 23:59 23:59 23:59 Intake Total 3700 2220 931.3 Output Total 1625 1500 Balance 3700 595 -568.7 Meds/Results Medications: Active Medications Generic Name Dose Route Start Last Admin Trade Name Freq PRN Reason Stop Dose Admin Hydralazine HCl 10 mg 05/24/24 14:05 Hydralazine Hcl 20 Mg/Ml Vial IV PUSH Q8H PRN Blood Pressure - High Hydromorphone HCl 1 mg 05/24/24 08:31 05/26/24 05:02 Hydromorphone Hcl Inj (*Crx) 1 Mg/Ml Syr IV PUSH 1 mg Q2H PRN Administration Pain Rated 7-10 Hydromorphone HCl 0.5 mg 05/24/24 08:31 05/26/24 08:32 Hydromorphone Hcl Inj (*Crx) 1 Mg/Ml Syr IV PUSH 0.5 mg Q2H PRN Administration Pain Rated 4-6 Sodium Chloride 1,000 mls @ 125 mls/hr 05/24/24 08:35 05/26/24 01:18 Normal Saline Iv IV CONT 125 mls/hr .Q8H LORRIE Administration Metoclopramide HCl 5 mg 05/24/24 18:00 05/26/24 05:01 Metoclopramide Hcl Inj 10 Mg/2 Ml Vial IV PUSH 5 mg Q6HR LORRIE Administration Ondansetron HCl 4 mg 05/24/24 04:15 05/24/24 13:00 Ondansetron Inj 4 Mg/2 Ml Vial IV PUSH 4 mg Q4H PRN Administration Nausea Pantoprazole Sodium 40 mg 05/24/24 09:00 05/26/24 08:24 Pantoprazole Sodium Iv 40 Mg Vial IV PUSH 40 mg QAM LORRIE Administration Radiology Results: ITS Impressions Abdomen X-Ray 05/24/24 06:23 IMPRESSION: 1. Nasogastric tube expected position with both distal tip and proximal side port in the body of the stomach on the final image. Abdomen X-Ray 05/24/24 06:23 IMPRESSION: 1. Nasogastric tube expected position with both distal tip and proximal side port in the body of the stomach on the final image. Abdomen/Pelvis CT 05/24/24 07:41 IMPRESSION: 1. Early versus partial small bowel obstruction with mesenteric edema and hyperenhancement of a saclike collection of small bowel loops distal to the transition point. Would favor an internal hernia over closed loop obstruction but nonetheless with concern for ischemia. Labs Labs: Laboratory Results - last 24 hr 05/25/24 05/25/24 05/26/24 12:12 23:26 05:15 WBC RBC Hgb Hct MCV MCH MCHC RDW Plt Count
[2024-05-26 12:35] LABS: Glucose Point of Care 114 mg/dl (65-105)
[2024-05-26] MEDS: CALCIUM CARBONATE (TUMS) 500 MG (200 MG ELEMENTAL) PO ×2 (18:05→23:01)
[2024-05-26 18:32] LABS: Glucose Point of Care 258 mg/dl (65-105)
[2024-05-26] MEDS: INSULIN ASPART (*BKC) 100 UNITS/ML SUB-Q (18:49)
[2024-05-26 21:02] LABS: Glucose Point of Care 192 mg/dl (65-105)
[2024-05-27] VITALS (7 sets, daily range): BP systolic 139–161; BP diastolic 71–83; PULSE 62–70; RESP 16–18; TEMP 36.4–36.5; O2SAT 94–96
[2024-05-27] MEDS: METOCLOPRAMIDE HCL INJ 10 MG/2 ML VIAL 5 MG IV PUSH ×4 (05:07→23:57)
[2024-05-27] MEDS: HYDROmorphone HCL INJ (*CRX) 1 MG/ML SYR IV PUSH (05:07)
[2024-05-27] MEDS: SODIUM CHLORIDE 0.9% IV 1,000 ML 125 ML IV CONT (05:07)
[2024-05-27 06:09] LABS: Basophils Percent Auto 0.4 % (0.2-1.2); Eosinophils Absolute Auto 0.1 K/mm3 (0-0.3); Eosinophils Percent Auto 0.7 % (0-4.4); Hematocrit 40.9 % (42.0-52.0); Immature Granulocyte Absolute 0.02 K/mm3 (0.00-0.031); Immature Granulocyte Percent A 0.3 % (0-0.5); Lymphocytes Percent Auto 13.1 % (18.3-44.2); Mean Corpuscular HGB Conc 34.2 g/dl (32-36); Mean Corpuscular Hemoglobin 33.7 pg (26-34); Mean Corpuscular Volume 98.3 fl (80-100); Mean Platelet Volume 10.1 fl (7.4-10.4); Monocytes Absolute Auto 0.7 K/mm3 (0.1-0.6); Monocytes Percent Auto 10.6 % (2.6-8.5); Neutrophils Absolute Auto 5.2 K/mm3 (1.3-6.7); Neutrophils Percent Auto 74.9 % (45.5-73.1); Platelet Count Result 203 k/mm3 (150-375); Red Blood Count 4.16 M/mm3 (4.6-6.20); Red Cell Distribution Width 13.9 % (11.5-14.5); White Blood Count 6.9 K/mm3 (4.5-10.0)
[2024-05-27 06:20] LABS: Alanine Aminotransferase 10 U/L (6-50); Albumin Level 3.4 g/dL (3.5-5.1); Alkaline Phosphatase 50 U/L (38-126); Anion Gap 6 mmol/L (4-12); Aspartate Amino Transferase 19 U/L (17-59); Blood Urea Nitrogen 13 mg/dL (9-20); Calcium 8.7 mg/dL (8.4-10.2); Carbon Dioxide 29 mmol/L (22-30); Chloride 100 mmol/L (98-107); Estimated CRCL calculation 101 ml/min; Estimated Glomerular Filt Rate > 60; Glucose 125 mg/dL (65-110); Potassium 3.6 mmol/L (3.4-5.0); Sodium 135 mmol/L (137-145)
[2024-05-27] MEDS: PANTOPRAZOLE SODIUM IV 40 MG VIAL IV PUSH (08:05)
[2024-05-27 08:47] LABS: Glucose Point of Care 143 mg/dl (65-105)
--- NOTE | 2024-05-27 10:53 | WPDPN ---
Progress Note: A&P Assessment and Plan (1) Small bowel obstruction: Code(s): K56.609 - Unspecified intestinal obstruction, unspecified as to partial versus complete obstruction Status: Acute Assessment and Plan: Small-bowel obstruction resolved after reduction of internal hernia and lysis of adhesion. Patient doing well today. Tolerating having his NG tube removed. Has tolerated clear liquids. We will go ahead advanced in the full liquids for lunch. If tolerating full liquids then can have a diabetic solid diet for dinner. Once he is tolerating regular food he can likely be discharged home. He is starting to pass flatus and expected he will start passing bowel movement soon. Subjective Date/time seen: 05/27/24 10:53 Interval history: Doing well today. Nasogastric tube was removed yesterday any tolerated having out. Tolerated clear liquids x2 and started passing flatus but no bowel movement yet. Up walking in the hallways without any difficulty. Still taking a small amount of Dilaudid for pain. I encouraged him to use oral pain medications. Exam GI: Other: Abdomen is soft and nondistended. Lower midline incision is intact with skin glue in place. No redness or drainage. Objective Data Vital Signs Vital Signs: Vital Signs - 24 hr 05/26/24 12:05 05/26/24 15:18 05/26/24 16:04 Temperature 36.7 C Pulse Rate 71 85 85 Respiratory Rate 18 Blood Pressure 142/86 H Pulse Oximetry 96 Oxygen Delivery 05/26/24 20:48 05/26/24 20:00 05/26/24 20:00 Temperature 36.3 C L Pulse Rate 75 74 Respiratory Rate 18 Blood Pressure Pulse Oximetry 96 Oxygen Delivery Room Air 05/27/24 00:00 05/27/24 04:00 05/27/24 05:13 Temperature 36.4 C Pulse Rate 67 65 62 Respiratory Rate 18 Blood Pressure 161/71 H Pulse Oximetry 95 Oxygen Delivery 05/27/24 08:00 Temperature Pulse Rate Respiratory Rate Blood Pressure Pulse Oximetry Oxygen Delivery Room Air Intake/Output Intake/Output: Intake & Output 05/24/24 05/25/24 05/26/24 05/27/24 23:59 23:59 23:59 23:59 Intake Total 3700 2220 3411.3 1470 Output Total 1625 2700 1100 Balance 3700 595 711.3 370 Meds/Results Medications: Active Medications Generic Name Dose Route Start Last Admin Trade Name Freq PRN Reason Stop Dose Admin Acetaminophen 1,000 mg 05/27/24 10:52 Acetaminophen 500 Mg Tablet PO Q6H PRN Mild Pain (1-3) or Fever Hydrocodone Bitart/Acetaminophen 1 tab 05/27/24 10:52 Hydrocodone/Acetaminophen (*Crx) 5-325 Mg Tablet PO Q4H PRN Pain Rated 4-6 Calcium Carbonate 200 mg 05/26/24 17:59 05/26/24 23:01 Calcium Carbonate (Tums) 500 Mg (200 Mg Elemental) PO 200 mg Q6H PRN Administration Indigestion Dextrose 12.5 gm 05/26/24 18:34 Dextrose 50% 25 Gm/50 Ml Syringe IV PUSH PRN PRN Hypoglycemia Protocol Glucagon 1 mg 05/26/24 18:34 Glucagon For Inj 1 Mg Vial IM PRN PRN Hypoglycemia Protocol Glucose 15 gm 05/26/24 18:34 Glucose Oral Gel 15 Gm Of Glucse In 37.5 Gm Tube PO PRN PRN Hypoglycemia Protocol Hydralazine HCl 10 mg 05/24/24 14:05 Hydralazine Hcl 20 Mg/Ml Vial IV PUSH Q8H PRN Blood Pressure - High Hydromorphone HCl 1 mg 05/24/24 08:31 05/27/24 05:07 Hydromorphone Hcl Inj (*Crx) 1 Mg/Ml Syr IV PUSH 1 mg Q2H PRN Administration Pain Rated 7-10 Hydromorphone HCl 0.5 mg 05/24/24 08:31 05/26/24 14:09 Hydromorphone Hcl Inj (*Crx) 1 Mg/Ml Syr IV PUSH 0.5 mg Q2H PRN Administration Pain Rated 4-6 Dextrose 1,000 mls @ 100 mls/hr 05/27/24 10:55 Dextrose 5% 1,000 Ml IV CONT .Q10H PRN Hypoglycemia Insulin Aspart 1 - 3 units 05/26/24 21:00 05/26/24 21:03 Insulin Aspart (*Bkc) 100 Units/Ml SUB-Q Not Given HS LORRIE Protocol Insulin Aspart 3 - 6 units 05/26/24 18:39 05/27/24 08:05 Insulin Aspart (*Bkc) 100
[2024-05-27] MEDS: HYDROcodone/acetaminophen (*CRX) 5-325 MG TABLET 1 TAB PO ×3 (12:04→21:48)
[2024-05-27 12:13] LABS: Glucose Point of Care 183 mg/dl (65-105)
[2024-05-27] MEDS: FOLIC ACID 1 MG TABLET PO (13:13)
[2024-05-27] MEDS: lisinopriL 10 MG TABLET PO (13:13)
[2024-05-27] MEDS: ATORVASTATIN 40 MG TABLET PO (13:13)
--- NOTE | 2024-05-27 13:50 | PM.IMPN ---
Progress Note: A&P Assessment and Plan (1) Small bowel obstruction: Code(s): K56.609 - Unspecified intestinal obstruction, unspecified as to partial versus complete obstruction Status: Acute Assessment and Plan: - Abd/pelvis CT: Early versus partial small bowel obstruction with mesenteric edema and hyperenhancement of a saclike collection of small bowel loops distal to the transition point. Would favor an internal hernia over closed loop obstruction but nonetheless with concern for ischemia. - No history of abdominal surgery - P.r.n. Anti emetics, avoid reglan - IV antibiotics discontinued by surgery as there was no ischemia during surgery - Diet: advance as tolerated - NG tube discontinued - Surgery consulted s/p exploratory laparotomy, lysis of adhesion, detorsion of internal hernia on 05/[address] Day - Monitor vital signs, I&Os, track stool output, watch for bloody stools, neuro status and patient is a fall risk - Monitor serum electrolytes and CBC (2) Type 2 diabetes mellitus with mild nonproliferative diabetic retinopathy without macular edema, bilateral: Qualifiers: Diabetes mellitus adjunct faculty for medical terminology insulin use: without mcc use Qualified Code(s): E11.3293 - Type 2 diabetes mellitus with mild nonproliferative diabetic retinopathy without macular edema, bilateral Code(s): E11.3293 - Type 2 diabetes mellitus with mild nonproliferative diabetic retinopathy without macular edema, bilateral Status: Acute Assessment and Plan: - hypoglycemia protocol - POC blood glucose ACHS - home medication - metformin - A1C 8.1 on 12/15/23 (3) HTN (hypertension): Qualifiers: Hypertension type: primary hypertension Qualified Code(s): I10 - Essential (primary) hypertension Code(s): I10 - Essential (primary) hypertension Status: Acute Assessment and Plan: Chronic, continue to home medications. - Lisinopril 10 mg daily - Monitor Time Spent With Patient Time with patient: 25 - 35 minutes Subjective Date/time seen: 05/27/24 13:50 Interval history: 68 year old male with past medical history of hypertension and diabetes presented to the hospital for abdominal pain. Patient is pleasant lying comfortably in bed. NG tube was removed yesterday. He has been tolerating his diet and continues to advance. He denies nausea/vomiting and increased abdominal pain. He reports one episode a flatus this morning but still has not had a bowel movement. Patient continues to ambulate throughout the halls without difficulty. He remains inpatient at this time due to lack of bowel function. Review of Systems Review of Systems: All systems reviewed & are unremarkable except as noted in HPI and below Exam Narrative: AF HR 62 RR 18 SpO2 95 BP 161/71 General: male in no acute respiratory distress who is nontoxic appearing, lying semi recumbent in bed. HEENT: Normocephalic. Atraumatic. Extraocular movement intact. Sclera clear and anicteric. No facial asymmetry. Chest: Lungs are clear to auscultation bilaterally. No wheezes or crackles. CV: Heart was regular rate and rhythm. S1/S2. No murmurs, gallops, or rubs. Abd: Abdomen was soft. Tender to palpation. Nondistended. Hypoactive bowel sounds. No organomegaly or masses. Clean dry and intact incision in the hypogastric region. Objective Data Vital Signs Vital Signs: Vital Signs - 24 hr 05/26/24 15:18 05/26/24 16:04 05/26/24 20:48 Temperature 98.1 F 97.4 F L Pulse Rate 85 85 75 Respiratory Rate 18 18 Blood Pressure 142/86 H Pulse Oximetry 96 96 Oxygen Delivery 05/26/24 20:00 05/26/24 20:00 05/27/24 00:00 Temperature Pulse Rate 74 67 Respiratory Rate Blood Pressure Pulse Oximetry Oxygen Delivery Room Air 05/27/24 04:00 05/27/24 05:13 05/27/24 08:00 Temperature 97.6 F Pulse Rate 65 62 Respiratory Rate 18 Blood Pressure 161/71 H Pulse Oximetry 95 Oxygen Delivery Room
[2024-05-27 17:22] LABS: Glucose Point of Care 184 mg/dl (65-105)
[2024-05-27] MEDS: INSULIN ASPART (*BKC) 100 UNITS/ML SUB-Q (21:46)
[2024-05-28] MEDS: HYDROcodone/acetaminophen (*CRX) 5-325 MG TABLET 1 TAB PO ×3 (01:43→10:58)
[2024-05-28] MEDS: METOCLOPRAMIDE HCL INJ 10 MG/2 ML VIAL 5 MG IV PUSH ×2 (05:28→12:45)
[2024-05-28 06:00] VITALS: BP 138/72; PULSE 66; RESP 16; TEMP 36.2; O2SAT 94
[2024-05-28 06:06] LABS: Basophils Percent Auto 0.3 % (0.2-1.2); Eosinophils Absolute Auto 0.1 K/mm3 (0-0.3); Eosinophils Percent Auto 1.3 % (0-4.4); Hematocrit 42.9 % (42.0-52.0); Hemoglobin 14.4 g/dL (14.0-18.0); Immature Granulocyte Absolute 0.02 K/mm3 (0.00-0.031); Immature Granulocyte Percent A 0.3 % (0-0.5); Lymphocytes Absolute Auto 0.97 K/mm3 (0.9-3.2); Lymphocytes Percent Auto 13.9 % (18.3-44.2); Mean Corpuscular HGB Conc 33.6 g/dl (32-36); Mean Corpuscular Volume 98.2 fl (80-100); Mean Platelet Volume 10.5 fl (7.4-10.4); Monocytes Absolute Auto 0.8 K/mm3 (0.1-0.6); Monocytes Percent Auto 11.9 % (2.6-8.5); Neutrophils Percent Auto 72.3 % (45.5-73.1); Platelet Count Result 234 k/mm3 (150-375); Red Blood Count 4.37 M/mm3 (4.6-6.20); Red Cell Distribution Width 13.7 % (11.5-14.5)
[2024-05-28 06:19] LABS: Alanine Aminotransferase 8 U/L (6-50); Albumin Level 3.3 g/dL (3.5-5.1); Alkaline Phosphatase 54 U/L (38-126); Anion Gap 6 mmol/L (4-12); Aspartate Amino Transferase 14 U/L (17-59); Bilirubin,Total 0.9 mg/dL (0.2-1.3); Blood Urea Nitrogen 12 mg/dL (9-20); Calcium 8.8 mg/dL (8.4-10.2); Carbon Dioxide 31 mmol/L (22-30); Chloride 98 mmol/L (98-107); Estimated CRCL calculation 101 ml/min; Estimated Glomerular Filt Rate > 60; Glucose 160 mg/dL (65-110); Potassium 3.5 mmol/L (3.4-5.0); Sodium 135 mmol/L (137-145)
[2024-05-28 06:37] LABS: Glucose Point of Care 238 mg/dl (65-105)
[2024-05-28 08:21] LABS: Glucose Point of Care 136 mg/dl (65-105)
[2024-05-28] MEDS: lisinopriL 10 MG TABLET PO (09:08)
[2024-05-28] MEDS: PANTOPRAZOLE 40 MG TABLET PO (09:09)
[2024-05-28] MEDS: ATORVASTATIN 40 MG TABLET PO (09:09)
[2024-05-28] MEDS: FOLIC ACID 1 MG TABLET PO (09:09)
--- NOTE | 2024-05-28 10:29 | WPDPN ---
Progress Note: A&P Assessment and Plan (1) Small bowel obstruction: Code(s): K56.609 - Unspecified intestinal obstruction, unspecified as to partial versus complete obstruction Status: Acute Assessment and Plan: Small-bowel obstruction has resolved. He is tolerating regular diet. Will give a suppository today to facilitate having a bowel movement. He is ambulating in the hallways with a walker. I think he can probably go home later today if he is doing well. Will discharge home with the same oral pain medications he has been getting here in the hospital. He will need to follow-up in the office in about [address] Day. Surgical discharge instructions on chart. Subjective Date/time seen: 05/28/24 10:29 Interval history: Patient is doing better. Up walking in the hallways. He is tolerating a solid food diet. No nausea. Some lower abdominal pain which she feels is count crampy and gas related. He is passing flatus but has not had a bowel movement yet. White blood cell count is normal. Exam GI: Other: Abdomen is soft and nondistended. Good bowel sounds are noted. Incision is healing well without redness or drainage. Objective Data Vital Signs Vital Signs: Vital Signs - 24 hr 05/27/24 12:05 05/27/24 14:18 05/27/24 20:00 Temperature 36.5 C Pulse Rate 62 65 Respiratory Rate 17 Blood Pressure 151/83 H Pulse Oximetry 96 Oxygen Delivery Room Air 05/27/24 22:00 05/28/24 06:00 Temperature 36.5 C 36.2 C L Pulse Rate 70 66 Respiratory Rate 16 16 Blood Pressure 139/73 138/72 Pulse Oximetry 94 94 Oxygen Delivery Intake/Output Intake/Output: Intake & Output 05/25/24 05/26/24 05/27/24 05/28/24 23:59 23:59 23:59 23:59 Intake Total 2220 3411.3 1990 720 Output Total 1625 2700 1100 Balance 595 711.3 890 720 Meds/Results Medications: Active Medications Generic Name Dose Route Start Last Admin Trade Name Freq PRN Reason Stop Dose Admin Acetaminophen 1,000 mg 05/27/24 10:52 Acetaminophen 500 Mg Tablet PO Q6H PRN Mild Pain (1-3) or Fever Hydrocodone Bitart/Acetaminophen 1 tab 05/27/24 10:52 05/28/24 05:30 Hydrocodone/Acetaminophen (*Crx) 5-325 Mg Tablet PO 1 tab Q4H PRN Administration Pain Rated 4-6 Atorvastatin Calcium 40 mg 05/27/24 11:59 05/28/24 09:09 Atorvastatin 40 Mg Tablet PO 40 mg DAILY LORRIE Administration Calcium Carbonate 200 mg 05/26/24 17:59 05/26/24 23:01 Calcium Carbonate (Tums) 500 Mg (200 Mg Elemental) PO 200 mg Q6H PRN Administration Indigestion Dextrose 12.5 gm 05/26/24 18:34 Dextrose 50% 25 Gm/50 Ml Syringe IV PUSH PRN PRN Hypoglycemia Protocol Folic Acid 1 mg 05/27/24 11:59 05/28/24 09:09 Folic Acid 1 Mg Tablet PO 1 mg DAILY LORRIE Administration Glucagon 1 mg 05/26/24 18:34 Glucagon For Inj 1 Mg Vial IM PRN PRN Hypoglycemia Protocol Glucose 15 gm 05/26/24 18:34 Glucose Oral Gel 15 Gm Of Glucse In 37.5 Gm Tube PO PRN PRN Hypoglycemia Protocol Hydralazine HCl 10 mg 05/24/24 14:05 Hydralazine Hcl 20 Mg/Ml Vial IV PUSH Q8H PRN Blood Pressure - High Hydromorphone HCl 1 mg 05/24/24 08:31 05/27/24 05:07 Hydromorphone Hcl Inj (*Crx) 1 Mg/Ml Syr IV PUSH 1 mg Q2H PRN Administration Pain Rated 7-10 Hydromorphone HCl 0.5 mg 05/24/24 08:31 05/26/24 14:09 Hydromorphone Hcl Inj (*Crx) 1 Mg/Ml Syr IV PUSH 0.5 mg Q2H PRN Administration Pain Rated 4-6 Dextrose 1,000 mls @ 100 mls/hr 05/27/24 10:55 Dextrose 5% 1,000 Ml IV CONT .Q10H PRN Hypoglycemia Insulin Aspart 1 - 3 units 05/26/24 21:00 05/27/24 21:46 Insulin Aspart (*Bkc) 100 Units/Ml SUB-Q 1 units HS LORRIE Administration Protocol Insulin Aspart 3 - 6 units 05/26/24 18:39 05/28/24 08:37 Insulin Aspart (*Bkc) 100 Units/Ml SUB-Q Not Given [facility] Protocol Lisinopril
[2024-05-28 12:07] LABS: Glucose Point of Care 210 mg/dl (65-105)
[2024-05-28] MEDS: INSULIN ASPART (*BKC) 100 UNITS/ML SUB-Q (12:47)
--- NOTE | 2024-05-28 12:59 | PM.DS ---
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 Qualified Code(s): E11.3293 - Type 2 diabetes mellitus with mild nonproliferative diabetic retinopathy without macular edema, bilateral Code(s): E11.3293 - Type 2 diabetes mellitus with mild nonproliferative diabetic retinopathy without macular edema, bilateral Status: Acute (3) HTN (hypertension): Qualifiers: Hypertension type: primary hypertension Qualified Code(s): I10 - Essential (primary) hypertension Code(s): I10 - Essential (primary) hypertension Status: Acute DS: Summary Hospital Course Reason for hospitalization: small-bowel obstruction type 2 diabetes hypertension Hospital Course: 68 year old male with past medical history of hypertension and diabetes presented to the hospital for abdominal pain. An abdomen/pelvis CT showed early versus partial small bowel obstruction with mesenteric edema and hyperenhancement of a saclike collection of small bowel loops distal to the transition point. Would favor an internal hernia over closed loop obstruction but nonetheless with concern for ischemia. Patient was started on IV antibiotics, made NPO and surgery was consulted. Patient underwent an exploratory laparotomy, lysis of adhesion, detorsion of internal hernia on 05/[address] Day. The IV antibiotics were discontinued on 05/25 by surgery as there was no ischemia noted during the procedure. Patient had an NG tube placed for decompression. Placement checked with XR. Patient remained on IV fluids. NG tube was clamped on 05/26 and removed that night. He was started on clear liquid diet and advanced as tolerated. During admission patient was advanced back to regular diet, tolerating well. Patient was reporting flatus but denied bowel movements. Spoke with surgery and okay to discharge at this time on a bowel regimen. Discussed with patient that if he continues to not have a bowel movement or if he develops worsening abdominal pain to return to the ER or call. He states understanding and feels comfortable with discharge. Patient discharged home with family in stable condition. He is to follow up with his PCP as scheduled and surgery in 2 weeks. Status at Discharge Functional status at discharge: independent ambulation Time Spent with Patient Time attestation: Total time spent providing and/or coordinating discharge services: Time spent: Greater than 30 minutes Exam Narrative: AF HR 66 RR 16 SpO2 94 BP 138/72 General: male in no acute respiratory distress who is nontoxic appearing, lying semi recumbent in bed. HEENT: Normocephalic. Atraumatic. Extraocular movement intact. Sclera clear and anicteric. No facial asymmetry. Chest: Lungs are clear to auscultation bilaterally. No wheezes or crackles. CV: Heart was regular rate and rhythm. S1/S2. No murmurs, gallops, or rubs. Abd: Abdomen was soft. Tender to palpation. Nondistended. Active bowel sounds. No organomegaly or masses. Clean dry and intact incision in the hypogastric region. DS: Data Data Completed and Pending Completed studies during hospitalization: Abdomen/pelvis CT Abdomen XR Abdomen XR Abdomen XR Labs on day of discharge: Labs from last 24 hours 05/28/24 05/28/24 05/28/24 12:01 08:16 05:55 WBC 7.0 RBC 4.37 L Hgb 14.4 Hct 42.9 MCV 98.2 MCH 33.0 MCHC 33.6 RDW 13.7 Plt Count 234 MPV 10.5 H Immature Gran % (Auto) 0.3 Neut % (Auto) 72.3 Lymph % (Auto) 13.9 L M
[2024-05-28] MEDS: BISACODYL 10 MG SUPPOSITORY RECTAL (13:11)
== END 2024-05-28 13:40 | disposition home or self-care (01) | DRG 330 ==
LOC: ANHED 05-24 04:18 → ANH3MED 05-24 04:28
PROVIDERS: Nurse Practitioner; Nurse Practitioner Family; Surgery; Admitting Provider Internal Medicine; Emergency Provider Emergency Medicine; PCP Family Medicine; Visit Provider Student in an Organized Health Care Education/Training Program
PROC: 0DS80ZZ Reposition Small Intestine, Open Approach (ICD-10-PCS; CPT 49000; principal; 2024-05-24 15:00)
DX: K46.0 Unspecified abdominal hernia with obstruction, without gangrene (principal); K56.50 Intestinal adhesions [bands], unspecified as to partial versus complete obstruction; E11.3293 Type 2 diabetes mellitus with mild nonproliferative diabetic retinopathy without macular edema, bilateral; I10 Essential (primary) hypertension; E78.00 Pure hypercholesterolemia, unspecified; L40.50 Arthropathic psoriasis, unspecified; Z98.1 Arthrodesis status; Z87.891 Personal history of nicotine dependence; Z79.899 Other long term (current) drug therapy
CPT/HCPCS: 36415; 74177; 80048; 80053; 81001; 82948; 83605; 83690; 85025; 85027; 85610; 96361; 96365; 96375; 96376; 99285; A9270; J0330; J1100; J1170; J1200; J1815; J1885; J2250; J2405; J2470; J2543; J2704; J2765; J3010; J7030; J7120; Q9967